=== PATIENT | female | born 1975 | race Caucasian/White ===

== ENCOUNTER 2022-08-07 19:50 | Emergency (ER) | payer OTHER ==
[~2022-08-07] VITALS: Ht 167.6 cm; Wt 60.8 kg
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
--- NOTE | 2022-08-07 20:05 | NUR ---
SEEN BY PA AT BEDSIDE. PATIENT HAS 2 LACERATED WOUND ON LEFT PARIETAL AREA. #1 IS 1.5CM, #2 IS 2CM. SKIN PREP DONE.
[2022-08-07] MEDS ORDERED: TDAP [DIPH/PERTUSSIS/TET] 0.5 ML VIAL IM ONE ×2 (20:30→20:59)
[2022-08-07] MEDS ORDERED: LIDOCAINE 1%-EPI 1:100,000 20 ML VIAL TP ONE (20:30)
[2022-08-07] MEDS ORDERED: ACETAMINOPHEN 325 MG TABLET PO ONE (20:30)
[2022-08-07] MEDS ORDERED: ACETAMINOPHEN ES 500 MG TABLET ONE (20:59)
[2022-08-07] MEDS ORDERED: LIDOCAINE 1%-EPI 1:100,000 20 ML VIAL ONE (20:59)
--- NOTE | 2022-08-07 22:05 | NUR ---
JOHN APPLIED TO LACERATED WOUNDS BY ACOSTA
--- NOTE | 2022-08-07 22:33 | NUR ---
Patient discharged to home in stable condition. Written and verbal after care instructions given. Patient verbalizes understanding of instruction.
[2022-08-07 22:34] VITALS: BP 112/82
== END 2022-08-07 22:34 | disposition home or self-care (01) ==
LOC: ER 19:53
DX: S01.01XA Laceration without foreign body of scalp, initial encounter (principal); S50.312A Abrasion of left elbow, initial encounter; W05.1XXA Fall from non-moving nonmotorized scooter, initial encounter; Y93.89 Activity, other specified; Y92.89 Other specified places as the place of occurrence of the external cause; Y99.8 Other external cause status
CPT/HCPCS: 99284; 70450; 12004; 90471; 90715; J3490